=== PATIENT | female | born 1965 | race Caucasian/White ===

== ENCOUNTER 2018-04-27 19:03 | Emergency (ER) | payer BC ==
[~2018-04-27] VITALS: Ht 172.7 cm; Wt 81.6 kg
[2018-04-27] MEDS ORDERED: AMLODIPINE (19:09)
[2018-04-27] MEDS ORDERED: VENLAFAXINE (19:09)
[2018-04-27] MEDS ORDERED: ONDANSETRON ODT 8 MG ONE (19:26)
[2018-04-27] MEDS ORDERED: KETOROLAC 30 MG/1 ML ONE (19:27)
[2018-04-27] MEDS ORDERED: KETOROLAC 30 MG/1 ML IM ONE (19:30)
[2018-04-27 20:32] VITALS: BP 133/67
== END 2018-04-27 21:16 | disposition home or self-care (01) ==
LOC: ED 20:29
DX: S20.229A Contusion of unspecified back wall of thorax, initial encounter (principal); V87.8XXA Person injured in other specified noncollision transport accidents involving motor vehicle (traffic), initial encounter; Y93.89 Activity, other specified; Y92.89 Other specified places as the place of occurrence of the external cause; Y99.8 Other external cause status
CPT/HCPCS: 71101; 71250; 93005; 96372; 99284; J1885

== ENCOUNTER 2018-05-03 10:03 | Emergency (ER) | payer BC ==
[~2018-05-03] VITALS: Ht 172.7 cm; Wt 77.3 kg
[~2018-05-03 10:03] MED LIST: AMLODIPINE; VENLAFAXINE
[2018-05-03 10:15] VITALS: BP 152/86
[2018-05-03] MEDS ORDERED: HYDROcodone/APAP 5/325 TABLET ONE (10:39)
[2018-05-03] MEDS ORDERED: HYDROcodone/APAP 5/325 TABLET PO ONE (11:00)
== END 2018-05-03 12:14 | disposition home or self-care (01) ==
LOC: ED 10:57
DX: R07.89 Other chest pain (principal)
CPT/HCPCS: 71045; 93005; 99284

== ENCOUNTER 2019-06-21 12:11 | Emergency (ER) | payer BC ==
[~2019-06-21] VITALS: Ht 172.7 cm; Wt 84.1 kg
--- NOTE | 2019-06-21 12:31 | NUR ---
DR RICHTER BS FOR EXAM. PT A&OX4, RESP EVEN & UNLABORED, SPEECH CLEAR, SKIN WNL. C/O RT KNEE PAIN. STATES SHE WAS WEARING HEELS LAST NOC & FELL ON STEP. PAIN W/ FLEXION, PAIN TO INNER PATELLA AREA W/ MOVEMENT & PALPATION. REPORTS SLIGHT FLEXION FEELS BETTER THAN STRAIGHT. NO PAIN MEDS TAKEN TODAY. PEDAL PULSE STRONG & REG.
[2019-06-21] MEDS ORDERED: HYDROcodone/APAP 5/325 TABLET ONE (12:43)
--- NOTE | 2019-06-21 12:51 | NUR ---
ICE PACK APPLIED TO RT KNEE. ROOM COMPUTER NOT WORKING; UNABLE TO SCAN [id number]/ACETAMINOPHEN 325MG TAB; MEDICATION GIVEN TO PT (PO)
[2019-06-21] MEDS ORDERED: HYDROcodone/APAP 5/325 TABLET PO ONE (13:00)
--- NOTE | 2019-06-21 13:11 | NUR ---
PT REPORT TO KELVIN SIMMONS. PT CARE TRANSFERRED.
--- NOTE | 2019-06-21 13:46 | NUR ---
RECEIVED REPORT FROM KELVIN CABRALES. PT TAKEN TO XR.
[2019-06-21 13:57] VITALS: BP 169/73
--- NOTE | 2019-06-21 13:57 | NUR ---
PT RESTING ON GURNEY. NADN. GERARD.
== END 2019-06-21 14:41 | disposition home or self-care (01) ==
LOC: ED 13:06
DX: S83.91XA Sprain of unspecified site of right knee, initial encounter (principal); I10 Essential (primary) hypertension; W01.0XXA Fall on same level from slipping, tripping and stumbling without subsequent striking against object, initial encounter; Y93.89 Activity, other specified; Y92.89 Other specified places as the place of occurrence of the external cause; Y99.8 Other external cause status
CPT/HCPCS: 93005; 99283